=== PATIENT | male | born 1945 | race Caucasian/White ===

== ENCOUNTER 2016-10-09 22:50 | Observation (INO) | payer OTHER ==
[2016-10-09 23:11] VITALS: BMI 32.5
[2016-10-09] MEDS ORDERED: Albuterol/Ipratropium Neb 3 ML NEB NEB ONE (23:15)
[2016-10-09] MEDS ORDERED: METHYLPREDNISOLONE 125 MG/2 ML VIAL IV ONE (23:15)
--- NOTE | 2016-10-09 23:19 | EDPRACDOC ---
- History of Present Illness HPI: NOTE CP AND SHOB FOR A COUPLE OF DAYS. TOLD PA HE HAD CABG; HOWEVER, NO SCAR ON EXAM. HAD CATH AT [facility] ABOUT 9 YEARS AGO. UNSURE IF PCI, STENT, OR BLOCKAGE. <Chaz Francis - Last Filed: 10/10/16 01:15> - General Information Information Source: Patient - History of Present Illness HPI: C/o progressive exertional SOB x 2 months with intermittent racing heart beats x 1 month, and elevated BP last few days. Denies cp, fever, N/V/D, cough, sore throat, changes in urine or BM. Med hx = HTN, prior [place] with CABG (>9yrs ago), CVA x 2. Last stress test unknown. Shortness of Breath: Moderate Relevant History: Denies: None, Asthma, Bronchiolitis, COPD, Heart Failure (CHF) , H1N1, Immunosuppression, Influenza A exposure, Influenza B exposure, Recent travel, Renal Disease, Other Cough: Denies: Non-productive, NO, Productive, Clear, Bloody, Brown, Green, White, Yellow, T, BK, HK, CO, S, WK, O Ear Symptoms: Denies: None, Earache, Ear Drainage, Infection, Tinnitus, Hearing Difficulty, Deafness, Dizziness, Injury, Pain, Itching, Other SOB Worsens with: Reports: Exertion SOB Improves with: Reports: Rest <Wilfred Mesa - Last Filed: 10/10/16 04:13> - General Information Chief Complaint: Dyspnea/Resp distress Stated Complaint: SHOB Home Medications: Home Medications Calcium Carbonate [Calcium] 1 tab PO TID PRN 10/10/16 Clotrimazole & Betamethasone [Lotrisone Cream] 30 mg BOTH EARS BID 10/10/16 Fluticasone Propionate [Flonase] 2 spray PO DAILY 10/10/16 Ibuprofen 1 tab PO TID PRN 10/10/16 Lisinopril 1 tab PO DAILY 10/10/16 Loratadine [Claritin] 1 tab PO DAILY 10/10/16 Metoprolol Tartrate 1 tab PO BID 10/10/16 Multivit-Min/Iron Fum/Folic AC [Uobvd-Wmbaxfx-Bxccqkwi Tablet] 1 tab PO DAILY Omeprazole 20 mg PO BID 10/10/16 Tamsulosin HCl [Flomax] 1 cap PO DAILY 10/10/16 Allergies/Adverse Reactions: Allergies Allergy/AdvReac Type Severity Reaction Status Date / Time Penicillins Allergy Hives* Verified 10/10/16 04:05 - Treatment Prior to ED Arrival Reported Medications/Treatment [facility] Treatment BLS <Chaz Francis - Last Filed: 10/10/16 01:15> - Treatment Prior to ED Arrival Reported Medications/Treatment [facility] Treatment BLS <Wilfred Mesa - Last Filed: 10/10/16 04:13> ED Past Medical History - History Reviewed Yes Nurses notes reviewed and agree except as marked - Patient Medical History Cardiac History: Reports: Hypertension, Heart Attack, Hypercholesterolemia Psychological History: Denies: Depression Systemic History: Denies: Cancer - Social Medical History Smoking Status: Former smoker <Wilfred Mesa - Last Filed: 10/10/16 04:13> EDM Review of Systems - Review of Systems ROS Negative Except as Marked: Yes All systems reviewed and were negative except as marked Respiratory: Shortness of Breath Cardiovascular: Palpitations, Other (elevated BP) <Wilfred Mesa - Last Filed: 10/10/16 04:13> - Physical Exam Last recorded Vital Signs: Last Vital Signs Temp 97.9 F 10/09/16 23:04 Pulse 95 10/09/16 23:26 Resp 20 10/09/16 23:26 BP 164/103 H 10/09/16 23:26 Pulse Ox 95 10/09/16 23:26 Oxygen Pulse Oxygen Saturation 95 O2 Device Oxygen Flow Rate Fraction of Inspired Oxygen ( FIO2) <Chaz Francis - Last Filed: 10/10/16 01:15> - Physical Exam Constitutional: Distress Oriented to: Time, Person, Place Last recorded Vital Signs: Last Vital Signs Temp 97.9 F 10/09/16 23:04 Pulse 98 10/09/16 23:04 Resp 28 H 10/09/16 23:04 BP 179/113 H 10/09/16 23:04 Pulse Ox 96 10/09/16 23:04 Oxygen Pulse Oxygen Saturation 96 O2 Device Oxygen Flow Rate Fraction of Inspired Oxygen ( FIO2) - HEENT Head: Normal Eye Exam: negative: Conjunctival Injection, Scleral Icterus Oropharynx: negative: Drooling TMJ: Normal Nose: Other (chronic: cant breath thru nose) Neck: Normal - Respiratory/Cardiovascular Respiratory: Diminished (bilat), Wheezes (mild bilat) Cardiovascular: Tachycardia - GI Tenderness: Non tender - Musculoskeletal Back: Normal Extremities: Normal - Integumentary Skin: Normal - Neurologic Mood Description: Agitated Thought: Coherent Perception: Normal <Wilfred Mesa - Last Filed: 10/10/16 04:13> ED SOB MDM - Results Result Diagrams: 10/09/16 23:00 10/09/16 23:00 Results: WBC 9.0 xk/uL (3.8-10.8) 10/09/16 23:00 RBC 5.29 xM/uL (4.70-6.10) 10/09/16 23:00 Hgb 13.9 g/dL (14.0-18.0) L 10/09/16 23:00 Hct 41.5 % (42-52) L 10/09/16 23:00 MCV 78 fL (80-94) L 10/09/16 23:00 MCH 26.2 pg (27-32) L 10/09/16 23:00 MCHC 33.5 g/dl (33-36) 10/09/16 23:00 RDW 13.9 % (11.5-14.5) 10/09/16 23:00 Plt Count 225 xk/uL (130-400) 10/09/16 23:00 MPV 8.0 fL (7.4-10.4) 10/09/16 23:00 Neut % (Auto) 61.9 % (45-76) 10/09/16 23:00 Lymph % (Auto) 24.7 % (17-44) 10/09/16 23:00 Dupage % (Auto) 11.0 % (3-10) H 10/09/16 23:00 Eos % (Auto) 1.7 % (0-5) 10/09/16 23:00 Baso % (Auto) 0.7 % (0-2) 10/09/16 23:00 Absolute Neuts (auto) 5.49 xk/uL (1.7-8.2) 10/09/16 23:00 Absolute Lymphs (auto) 2.16 xk/uL (0.65-4.75) 10/09/16 23:00 PT 10.3 SEC (9.2-11.2) 10/09/16 23:00 INR 1.0 10/09/16 23:00 APTT 24.1 SEC (22-35) 10/09/16 23:00 D-Dimer Quant (PE/DVT) 343 ng/mL (<500) 10/09/16 23:00 Puncture Site Right radial 10/09/16 23:25 pH 7.520 pH UNITS (7.35-7.45) H 10/09/16 23:25 pCO2 28.0 mmHg (35-45) L 10/09/16 23:25 pO2 90.0 mmHg (80-100) 10/09/16 23:25 HCO3 22.9 MMOL/L (22-26) 10/09/16 23:25 Total CO2 23.8 MMOL/L (23-27) 10/09/16 23:25 Base Excess 1.1 (+/- 2) 10/09/16 23:25 FiO2 % Ra 10/09/16 23:25 Specimen Drawn By Bkl 10/09/16 23:25 Sodium 141 mEq/L (137-146) 10/09/16 23:00 Potassium 3.5 mEq/L (3.5-5.1) 10/09/16 23:00 Chloride 107 mEq/L (98-107) 10/09/16 23:00 Carbon Dioxide 22 mMOL/L (22-33) 10/09/16 23:00 Anion Gap 16 mEq/L (8-16) 10/09/16 23:00 BUN 11 MG/DL (9-20) 10/09/16 23:00 Creatinine 0.90 MG/DL (0.66-1.25) 10/09/16 23:00 Estimated GFR (MDRD) > 60 mL/min (>=60) 10/09/16 23:00 Glucose 129 MG/DL (70-99) H 10/09/16 23:00 Calculated Osmolality 272 MOs/Kg (270-290) 10/09/16 23:00 Calcium 9.6 MG/DL (8.4-10.2) 10/09/16 23:00 Total Bilirubin 0.5 MG/DL (0.2-1.3) 10/09/16 23:00 AST 23 IU/L (17-59) 10/09/16 23:00 ALT 15 IU/L (21-72) L 10/09/16 23:00 Alkaline Phosphatase 87 IU/L (50-160) 10/09/16 23:00 Troponin I < 0.01 ng/mL (<.04) 10/09/16 23:00 Loj-B-Bowgodzrygp Pept 66 pg/mL (0-900) 10/09/16 23:00 Total Protein 7.9 G/DL (6.3-8.2) 10/09/16 23:00 Albumin 4.0 G/DL (3.5-5.0) 10/09/16 23:00 Lab Results 10/09/16 10/09/16 10/09/16 23:25 23:00 23:00 WBC RBC Hgb Hct MCV MCH MCHC RDW Plt Count MPV Neut % (Auto) Lymph % (Auto) Dupage % (Auto) Eos % (Auto) Baso % (Auto) Absolute Neuts (auto) Absolute Lymphs (auto) PT 10.3 INR 1.0 APTT 24.1 D-Dimer Quant (PE/DVT) 343 Puncture Site Right radial pH 7.520 H pCO2 28.0 L pO2 90.0 HCO3 22.9 Total CO2 23.8 Base Excess 1.1 FiO2 % Ra Specimen Drawn By Bkl Sodium Potassium Chloride Carbon Dioxide Anion Gap BUN Creatinine Estimated GFR (MDRD) Glucose Calculated Osmolality Calcium Total Bilirubin AST ALT Alkaline Phosphatase Troponin I Sxk-M-Ourciofuqel Pept Total Protein Albumin 10/09/16 10/09/16 23:00 23:00 WBC 9.0 RBC 5.29 Hgb 13.9 L Hct 41.5 L MCV 78 L MCH 26.2 L MCHC 33.5 RDW 13.9 Plt Count 225 MPV 8.0 Neut % (Auto) 61.9 Lymph % (Auto) 24.7 Dupage % (Auto) 11.0 H Eos % (Auto) 1.7 Baso % (Auto) 0.7 Absolute Neuts (auto) 5.49 Absolute Lymphs (auto) 2.16 PT INR APTT D-Dimer Quant (PE/DVT) Puncture Site pH pCO2 pO2 HCO3 Total CO2 Base Excess FiO2 % Specimen Drawn By Sodium 141 Potassium 3.5 Chloride 107 Carbon Dioxide 22 Anion Gap 16 BUN 11 Creatinine 0.90 Estimated GFR (MDRD) > 60 Glucose 129 H Calculated Osmolality 272 Calcium 9.6 Total Bilirubin 0.5 AST 23 ALT 15 L Alkaline Phosphatase 87 Troponin I < 0.01 Kfx-B-Ipeuydmxwwn Pept 66 Total Protein 7.9 Albumin 4.0 <Chaz Francis - Last Filed: 10/10/16 01:15> - Re-evaluation Re-evaluation 1 Re-evaluation Time: 12:30 (pt much improved after duonebs. ) - Results Result Diagrams: 10/09/16 23:00 10/09/16 23:00 - EKG EKG #1 EKG Time: 23:03 -: Yes EKG interpreted by me Rate: bpm: 98 Rhythm: PVCs (sinus rhythm) ST: Normal - Diagnostic Imaging Chest Image interpreted by: Radiologist Diagnostic Imaging Comments: EXAM: PORTABLE CHEST 1 VIEW COMPARISON: None. FINDINGS: The lungs are clear with some bullous change seen in the apices. Heart size is normal. No pneumothorax or pleural effusion. IMPRESSION: No acute disease. Emphysema. Electronically Signed By: Taj Coker M.D. On: 10/09/2016 23:36 Other Image interpreted by: Radiologist Diagnostic Imaging Comments: EXAM: CT ANGIOGRAPHY CHEST WITH CONTRAST TECHNIQUE: Multidetector CT imaging of the chest was performed using the standard protocol during bolus administration of intravenous contrast. Multiplanar CT image reconstructions and MIPs were obtained to evaluate the vascular anatomy. The study was repeated due to limitations in the timing of the contrast bolus on the first scan. CONTRAST: 170 mL of Isovue 370 IV contrast COMPARISON: None. FINDINGS: There is no evidence of pulmonary embolus. Trace bilateral pleural fluid is noted, with mild bilateral atelectasis. Mild bullae are noted at the lung apices. There is no evidence of significant focal consolidation, pleural effusion or pneumothorax. No masses are identified; no abnormal focal contrast enhancement is seen. The mediastinum is unremarkable in appearance. No mediastinal lymphadenopathy is seen. No pericardial effusion is identified. The great vessels are grossly unremarkable in appearance. No axillary lymphadenopathy is seen. The visualized portions of the thyroid gland are unremarkable in appearance. The visualized portions of the liver and spleen are unremarkable. Bilateral renal cysts are partially imaged. The visualized portions of the pancreas, gallbladder and adrenal glands are unremarkable. No acute osseous abnormalities are seen. Review of the MIP images confirms the above findings. IMPRESSION: 1. No evidence of pulmonary embolus. 2. Trace bilateral pleural fluid, with mild bilateral atelectasis. Mild bullae noted at the lung apices. 3. Bilateral renal cysts noted. Electronically Signed By: Robert Hernandez M.D. On: 10/10/2016 01:02 <Wilfred Mesa - Last Filed: 10/10/16 04:13> - Departure Yes I personally saw and evaluated the patient. Disposition: Admit IP To This Hospital <Chaz Francis - Last Filed: 10/10/16 01:15> - Departure Education/Counseling Given To: Patient Education/Counseling Given Regarding: Diagnosis, Treatment, Prognosis, Follow Up Decision to Admit Time: : (Dr Magaña) Decision to admit date: 10/10/16 Decision to admit: from ED <Wilfred Mesa - Last Filed: 10/10/16 04:13> - Departure Condition: Stable Final Diagnosis: COPD exacerbation, CHEST PAIN
[2016-10-09 23:23] LABS: AUTOMATED BASOPHIL 0.7 % (0-2); AUTOMATED EOSINOPHIL 1.7 % (0-5); AUTOMATED LYMPH 24.7 % (17-44); AUTOMATED NEUTROPHIL 61.9 % (45-76)
[2016-10-09 23:30] LABS: ALLEN'S TEST PASS; BEb 1.1 (+/- 2); TCO2 23.8 MMOL/L (23-27)
[2016-10-09 23:32] LABS: ABG Draw Site Right Radial; ABG Draw Tech BKL
[2016-10-09 23:34] LABS: PARTIAL THROMB. TIME 24.1 SEC (22-35)
--- NOTE | 2016-10-09 23:39 | DIRPT ---
CLINICAL DATA: Shortness of breath for 2 months. Intermittent tachycardia for 1 month. Elevated blood pressure over the past few days. EXAM: PORTABLE CHEST 1 VIEW COMPARISON: None. FINDINGS: The lungs are clear with some bullous change seen in the apices. Heart size is normal. No pneumothorax or pleural effusion. IMPRESSION: No acute disease. Emphysema. Electronically Signed By: Taj Coker M.D. On: 10/09/2016 23:36
[2016-10-09 23:48] LABS: BLOOD UREA NITROGEN 11 MG/DL (9-20); CALCIUM 9.6 MG/DL (8.4-10.2); CALCULATED OSMOLALITY 272 MOs/Kg (270-290); CHLORIDE 107 mEq/L (98-107); GLUCOSE 129 MG/DL (70-99); SODIUM LEVEL 141 mEq/L (137-146); TOTAL PROTEIN 7.9 G/DL (6.3-8.2)
[2016-10-10] MEDS ORDERED: Albuterol/Ipratropium Neb 3 ML NEB NEB ONE (00:07)
[2016-10-10] MEDS ORDERED: Pharmacy Review for Metformin - IV Contrast Given SCH (01:00)
--- NOTE | 2016-10-10 01:05 | DIRPT ---
CLINICAL DATA: Chronic worsening shortness of breath, mid chest pain and headache. Initial encounter. EXAM: CT ANGIOGRAPHY CHEST WITH CONTRAST TECHNIQUE: Multidetector CT imaging of the chest was performed using the standard protocol during bolus administration of intravenous contrast. Multiplanar CT image reconstructions and MIPs were obtained to evaluate the vascular anatomy. The study was repeated due to limitations in the timing of the contrast bolus on the first scan. CONTRAST: 170 mL of Isovue 370 IV contrast COMPARISON: None. FINDINGS: There is no evidence of pulmonary embolus. Trace bilateral pleural fluid is noted, with mild bilateral atelectasis. Mild bullae are noted at the lung apices. There is no evidence of significant focal consolidation, pleural effusion or pneumothorax. No masses are identified; no abnormal focal contrast enhancement is seen. The mediastinum is unremarkable in appearance. No mediastinal lymphadenopathy is seen. No pericardial effusion is identified. The great vessels are grossly unremarkable in appearance. No axillary lymphadenopathy is seen. The visualized portions of the thyroid gland are unremarkable in appearance. The visualized portions of the liver and spleen are unremarkable. Bilateral renal cysts are partially imaged. The visualized portions of the pancreas, gallbladder and adrenal glands are unremarkable. No acute osseous abnormalities are seen. Review of the MIP images confirms the above findings. IMPRESSION: 1. No evidence of pulmonary embolus. 2. Trace bilateral pleural fluid, with mild bilateral atelectasis. Mild bullae noted at the lung apices. 3. Bilateral renal cysts noted. Electronically Signed By: Robert Hernandez M.D. On: 10/10/2016 01:02
[2016-10-10] MEDS ORDERED: ALBUTEROL 6.7 GM MDI INH ONE (01:11)
[2016-10-10] MEDS ORDERED: NITROGLYCERINE 2 % OINTMENT PACK TOP ONE (01:20)
[2016-10-10] MEDS ORDERED: ASPIRIN (CHEWABLE) 81 MG TAB PO ONE (01:20)
[2016-10-10] MEDS ORDERED: METOPROLOL TARTRATE 25 MG TAB PO ONE (01:20)
[2016-10-10] MEDS ORDERED: Enoxaparin 1 mg per kg per dose SQ ONE (01:21)
[2016-10-10] MEDS ORDERED: ONDANSETRON HCL 4 MG/2 ML VIAL IV PRN (01:26)
[2016-10-10] MEDS ORDERED: NITROGLYCERINE 0.4 MG TAB SL PRN (01:26)
[2016-10-10] MEDS ORDERED: ACETAMINOPHEN 325 MG/TAB TABLET PO PRN (01:26)
--- NOTE | 2016-10-10 01:29 | HISTPHYS ---
- Chief Complaint Chest pain - History of Present Illness This is a 71-year-old male with a history of hypertension was being admitted to the hospital this morning due to chest pain. Patient is not a very good historian, but tells me that he has had shortness of breath and intermittent chest pain for several weeks now. 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 This exertion made his chest pain particularly worse today. He also has some associated shortness of breath, a sensation that he has trouble catching his breath, which is occurring at the same time as his chest pain. He is unable to describe the nature of the pain. Pain is right in the center of his chest, does not radiate. No aggravating or alleviating factors other than aggravation caused by his stress and physical exertion tonight. Patient says that he had a heart catheterization about 8 or 9 years ago. He says that he was never anything about the findings or any possible intervention done. - Medical History Cardiac History: Reports: Hypertension, Heart Attack, Hypercholesterolemia Systemic History: Denies: Cancer Psychological History: Denies: Depression - Medictions/Allergies Allergies Penicillins Allergy (Verified 10/09/16 23:04) Hives* Home Medications Calcium Carbonate [Calcium] 1 tab PO TID PRN 10/10/16 Clotrimazole & Betamethasone [Lotrisone Cream] 30 mg BOTH EARS BID 10/10/16 Fluticasone Propionate [Flonase] 2 spray PO DAILY 10/10/16 Ibuprofen 1 tab PO TID PRN 10/10/16 Lisinopril 1 tab PO DAILY 10/10/16 Loratadine [Claritin] 1 tab PO DAILY 10/10/16 Metoprolol Tartrate 1 tab PO BID 10/10/16 Multivit-Min/Iron Fum/Folic AC [Tfbjx-Nvlaxcy-Vtycktzn Tablet] 1 tab PO DAILY Omeprazole 20 mg PO BID 10/10/16 Tamsulosin HCl [Flomax] 1 cap PO DAILY 10/10/16 - Social History Smoking Status: Former smoker - Review of Systems Yes All systems reviewed and were negative except as marked (And as mentioned in the history of present illness above.) - Physical Exam Vital Signs: Initial Vitals Temperature 97.9 F 10/09/16 23:04 Pulse Rate 98 10/09/16 23:04 Respiratory Rate 28 H 10/09/16 23:04 Blood Pressure 179/113 H 10/09/16 23:04 Pulse Oxygen Saturation 96 10/09/16 23:04 Constitutional: Alert (Awake, Fully oriented, well appearing. No apparent distress) Oriented to: Time, Person, Place - HEENT Head: Normal (normocephalic,atraumatic, trachea midline) Eye: Normal (EOMI, Sclera white) Oropharynx: Normal (moist) Nose: No Symptoms Reported (without discharge or bleeding) Respiratory: Normal - CTA (Clear to auscultation bilaterally, no wheezing,rales or rhonchi. No use of accessory muscles) Cardiovascular: Normal (RRR, no murmurs, rubs or gallops) - GI Palpation: Normal (soft, non distended and nontender) - Musculoskeletal Extremities: Normal (normal tone, no cyanosis or edema) - Integumentary Skin: Normal (no rashes or lesions) - Neurologic Cranial Nerve: Normal (CN II-XII intact) Mood Description: Normal (Fully oriented and appropiate affect) - Focused CV Perfusion Exam Vital Signs: Last Vital Signs Temp 97.9 F 10/09/16 23:04 Pulse 95 10/09/16 23:26 Resp 20 10/09/16 23:26 BP 164/103 H 10/09/16 23:26 Pulse Ox 95 10/09/16 23:26 - Lab Results Laboratory Tests 10/09/16 10/09/16 10/09/16 23:00 23:00 23:00 WBC 9.0 Hgb 13.9 L Hct 41.5 L Plt Count 225 INR 1.0 pH pCO2 pO2 Potassium 3.5 BUN 11 Creatinine 0.90 AST 23 ALT 15 L Alkaline Phosphatase 87 10/09/16 23:25 WBC Hgb Hct Plt Count INR pH 7.520 H pCO2 28.0 L pO2 90.0 Potassium BUN Creatinine AST ALT Alkaline Phosphatase - Diagnostic Findings CT of the chest without any acute findings. He has trace bilateral pleural effusions, as well as bilateral renal cysts. No pulmonary consolidation or emboli. - Assessment (1) Chest pain R07.9 - CHEST PAIN, UNSPECIFIED Acute Qualifiers: Chest pain type: C Ischemic chest pain type: I Intermittent chest pain, worse with exertion in a gentleman with a history of hypertension, diabetes and prior heart catheterization, although his whole history is quite unclear. Patient will be admitted under observation status to rule out myocardial infarction due to chest pain. Troponins were trended, and if negative he will have a stress test later this morning. Patient has been advised that if the stress test is negative, he will be discharged from the hospital later today and he should follow up with his regular provider at the retirement regarding other potential causes of his chest pain. Continue aspirin, home beta-zakia, and statin. (2) Emphysema lung J43.9 - EMPHYSEMA, UNSPECIFIED Acute Qualifiers: Emphysema type: E Continue home inhaled went medications. (3) Hypoxia R09.02 - HYPOXEMIA Acute He has subjective shortness of breath here in the hospital. It is associated with his chest pain, so may be an anginal equivalent. Continue supplemental oxygen, respiratory therapy has been consulted. CT of the chest does not show any consolidation, PE.
[2016-10-10] MEDS ORDERED: Pharmacy Order Set Alert SCH (02:00)
[2016-10-10] MEDS ORDERED: ENOXAPARIN SODIUM 100 MG, ENOXAPARIN SODIUM 30 MG SQ ONE ×2 (02:00)
[2016-10-10] MEDS ORDERED: CLOTRIMAZOLE & BETAMETHASONE 45 GM TUBE TOP SCH ×2 (03:00→09:00)
[2016-10-10] MEDS ORDERED: FLUTICASONE PROPIONATE 16 GM BOT NAS SCH ×2 (03:00→09:00)
[2016-10-10] MEDS ORDERED: Vaccine Screening Complete SCH (05:00)
[2016-10-10] MEDS ORDERED: PANTOPRAZOLE 40 MG TAB PO SCH (06:00)
[2016-10-10] MEDS ORDERED: SODIUM CHLORIDE 0.9% 10 ML FLUSH FLUSH ONE (08:00)
[2016-10-10] MEDS ORDERED: REGADENOSON 0.4 MG/5 ML SYRINGE IV ONE (08:00)
[2016-10-10] MEDS ORDERED: LISINOPRIL 20 MG TAB PO SCH (09:00)
[2016-10-10] MEDS ORDERED: FOLIC AC PO SCH (09:00)
[2016-10-10] MEDS ORDERED: MULTIVIT MIN PO SCH (09:00)
[2016-10-10] MEDS ORDERED: Non-Formulary Medication ITEM (Omeprazole [Omeprazole] 20 MG) PO SCH (09:00)
[2016-10-10] MEDS ORDERED: Loratadine 10 MG TAB PO SCH (09:00)
[2016-10-10] MEDS ORDERED: METOPROLOL TARTRATE 25 MG TAB PO SCH (09:00)
[2016-10-10] MEDS ORDERED: TAMSULOSIN HCL 0.4 MG CAP PO SCH (09:00)
[2016-10-10] MEDS ORDERED: [UNRECOGNIZED DRUG - OTHER] PO SCH (09:00)
[2016-10-10] MEDS ORDERED: LORATADINE PO SCH (09:00)
[2016-10-10] MEDS ORDERED: IRON FUM PO SCH (09:00)
[2016-10-10] MEDS ORDERED: SESTAMIBI 8 MCI V IV ONE (09:53)
--- NOTE | 2016-10-10 11:55 | CAPUEKG ---
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
[2016-10-10] MEDS ORDERED: VITAMINS, MULTIPLE CAP PO SCH (12:00)
--- NOTE | 2016-10-10 16:12 | PCM.DCS92 ---
- Final/Secondary Discharge Diagnosis (1) Chest pain Acute R07.9 - CHEST PAIN, UNSPECIFIED Present on Admission: Yes C I Comment: Intermittent chest pain, worse with exertion in a gentleman with a history of hypertension, diabetes and prior heart catheterization, although his whole history is quite unclear. Patient will be admitted under observation status to rule out myocardial infarction due to chest pain. Troponins were trended, and if negative he will have a stress test later this morning. Patient has been advised that if the stress test is negative, he will be discharged from the hospital later today and he should follow up with his regular provider at the custodial regarding other potential causes of his chest pain. Continue aspirin, home beta-zakia, and statin. (2) Emphysema lung Acute J43.9 - EMPHYSEMA, UNSPECIFIED Present on Admission: Yes centrilobular J43.2 - Centrilobular emphysema Comment: Continue home inhaled went medications. (3) Hypoxia Acute R09.02 - HYPOXEMIA Present on Admission: Yes Comment: He has subjective shortness of breath here in the hospital. It is associated with his chest pain, so may be an anginal equivalent. Continue supplemental oxygen, respiratory therapy has been consulted. CT of the chest does not show any consolidation, PE. Discharge Disposition: Home Discharge Condition: Improved Cognitive Discharge Status: Unimpaired Fuctional Discharge Status: Independent Physician Follow up/Referrals: None,No Provider [Family Provider] - One Week (Follow-up with physician at correctional facility in 1 week) Home Medications / New Prescriptions: Continue Calcium Carbonate [Calcium] 1 tab PO TID PRN PRN Reason: Acid Reflux Loratadine [Claritin] 10 mg PO .WITH DINNER Multivit-Min/Iron Fum/Folic AC [Cuevv-Tkcvcry-Fottcbuo Tablet] 1 tab PO DAILY Tamsulosin HCl [Flomax] 0.4 mg PO DAILY Metoprolol Tartrate 100 mg PO BID Lisinopril 20 mg PO DAILY Ibuprofen 800 mg PO TID PRN PRN Reason: Discomfort Clotrimazole & Betamethasone [Lotrisone Cream] 30 mg BOTH EARS BID Omeprazole 20 mg PO BID Triamcinolone Acetonide [Nasacort] 2 spray MAKAYLA DAILY Discharge Home Medication List Calcium Carbonate [Calcium] 1 tab PO TID PRN 10/10/16 [History Confirmed Last Taken Unknown] Clotrimazole & Betamethasone [Lotrisone Cream] 30 mg BOTH EARS BID 10/10/16 [ History Confirmed 10/10/16 Last Taken Unknown] Ibuprofen 800 mg PO TID PRN 10/10/16 [History Confirmed 10/10/16 Last Taken Unknown] Lisinopril 20 mg PO DAILY 10/10/16 [History Confirmed 10/10/16 Last Taken ] Loratadine [Claritin] 10 mg PO .WITH DINNER 10/10/16 [History Confirmed Last Taken 10/09/16] Metoprolol Tartrate 100 mg PO BID 10/10/16 [History Confirmed 10/10/16 Last Taken 10/09/16] Multivit-Min/Iron Fum/Folic AC [Hwuwq-Kmadpes-Dtnrmxil Tablet] 1 tab PO DAILY [History Confirmed 10/10/16 Last Taken 10/09/16] Omeprazole 20 mg PO BID 10/10/16 [History Confirmed 10/10/16 Last Taken 10/09/16 ] Tamsulosin HCl [Flomax] 0.4 mg PO DAILY 10/10/16 [History Confirmed 10/10/16 Last Taken 10/09/16] Triamcinolone Acetonide [Nasacort] 2 spray MAKAYLA DAILY 10/10/16 [History Confirmed 10/10/16 Last Taken 10/09/16] 10/09/16 23:00 10/09/16 23:00 Laboratory Results - last 24 hr 10/09/16 10/09/16 10/09/16 23:00 23:00 23:00 WBC 9.0 RBC 5.29 Hgb 13.9 L Hct 41.5 L MCV 78 L MCH 26.2 L MCHC 33.5 RDW 13.9 Plt Count 225 MPV 8.0 Neut % (Auto) 61.9 Lymph % (Auto) 24.7 [place] % (Auto) 11.0 H Eos % (Auto) 1.7 Baso % (Auto) 0.7 Absolute Neuts (auto) 5.49 Absolute Lymphs (auto) 2.16 PT 10.3 INR 1.0 APTT 24.1 D-Dimer Quant (PE/DVT) Puncture Site pH pCO2 pO2 HCO3 Total CO2 Base Excess FiO2 % Specimen Drawn By Sodium 141 Potassium 3.5 Chloride 107 Carbon Dioxide 22 Anion Gap 16 BUN 11 Creatinine 0.90 Estimated GFR (MDRD) > 60 Glucose 129 H Calculated Osmolality 272 Calcium 9.6 Total Bilirubin 0.5 AST 23 ALT 15 L Alkaline Phosphatase 87 Troponin I < 0.01 Koh-P-Aovluxohiar Pept 66 Total Protein 7.9 Albumin 4.0 10/09/16 10/09/16 10/10/16 23:00 23:25 02:52 WBC RBC Hgb Hct MCV MCH MCHC RDW Plt Count MPV Neut % (Auto) Lymph % (Auto) [place] % (Auto) Eos % (Auto) Baso % (Auto) Absolute Neuts (auto) Absolute Lymphs (auto) PT INR APTT D-Dimer Quant (PE/DVT) 343 Puncture Site Right radial pH 7.520 H pCO2 28.0 L pO2 90.0 HCO3 22.9 Total CO2 23.8 Base Excess 1.1 FiO2 % Ra Specimen Drawn By Bkl Sodium Potassium Chloride Carbon Dioxide Anion Gap BUN Creatinine Estimated GFR (MDRD) Glucose Calculated Osmolality Calcium Total Bilirubin AST ALT Alkaline Phosphatase Troponin I < 0.01 Elt-C-Vcdzafiwyyb Pept Total Protein Albumin 10/10/16 02:57 WBC RBC Hgb Hct MCV MCH MCHC RDW Plt Count MPV Neut % (Auto) Lymph % (Auto) [place] % (Auto) Eos % (Auto) Baso % (Auto) Absolute Neuts (auto) Absolute Lymphs (auto) PT INR APTT D-Dimer Quant (PE/DVT) Puncture Site pH pCO2 pO2 HCO3 Total CO2 Base Excess FiO2 % Specimen Drawn By Sodium Potassium Chloride Carbon Dioxide Anion Gap BUN Creatinine Estimated GFR (MDRD) Glucose Calculated Osmolality Calcium Total Bilirubin AST ALT Alkaline Phosphatase Troponin I < 0.01 Fuq-S-Jarzztayldw Pept Total Protein Albumin O2 Device: Room Air Additional Instructions: Diet at Discharge: As Tolerated Activity: As Tolerated - DC Summary Notes HPI/Notes: This is a 71-year-old male with a history of hypertension was being admitted to the hospital this morning due to chest pain. Patient is not a very good historian, but tells me that he has had shortness of breath and intermittent chest pain for several weeks now. Tonight, he was very stressed out at the custodial where he is an inmate, due to new prisoners causing trouble in his bunk, and resulted in heavy to carry his own heavy mattress the length of the custodial to defer block. This exertion made his chest pain particularly worse today. He also has some associated shortness of breath, a sensation that he has trouble catching his breath, which is occurring at the same time as his chest pain. He is unable to describe the nature of the pain. Pain is right in the center of his chest, does not radiate. No aggravating or alleviating factors other than aggravation caused by his stress and physical exertion tonight. Patient says that he had a heart catheterization about 8 or 9 years ago. He says that he was never anything about the findings or any possible intervention done. Hospital Course Note:: Discharge summary on patient named NED LEACH admitted to [facility] on 10/10/16 by Alejandro Bush MD. Date of discharge is 10/10/2016. This custodial inmate was admitted with chest pain and had a negative nuclear stress test for ischemia showing ejection fraction 57% and previous inferior wall CO. He was informed of the results of his test and sent back to custodial. Follow up with his primary care provider at the institution will be necessary within the next week. CC: Dr. Ramírez Total Time: 39 min Code: Other (236) - Physical Exam Vital Signs: Last Vital Signs Temp 97.9 F 10/09/16 23:04 Pulse 101 10/10/16 07:30 Resp 18 10/10/16 07:30 BP 154/84 10/10/16 07:30 Pulse Ox 95 10/10/16 07:30 Oxygen Pulse Oxygen Saturation 95 O2 Device Room Air Oxygen Flow Rate Fraction of Inspired Oxygen ( FIO2) Constitutional: Alert (Awake, Fully oriented. Normal and appropriate affect.), No apparent distress Oriented to: Time, Person, Place - HEENT Head: Normal Eye: Normal. negative: Conjunctival Injection, Scleral Icterus Oropharynx: Normal. negative: Drooling ENT EAC: Normal (No oropharyngeal lesions or erythema. Mucous membranes are dry. ) TMJ: Normal Nose: No Symptoms Reported, Other (chronic: cant breath thru nose) - Respiratory/Cardiovascular Respiratory: Diminished (bilat), Wheezes (mild bilat) Cardiovascular: Tachycardia - GI Auscultation: Normal (normal active sounds) Palpation: Normal (Soft,non distended,nontender. No hepatosplenomegaly.) Tenderness: Non tender Mcclelland's Sign: Negative - Musculoskeletal Back: Normal Extremities: Normal - Integumentary Skin: Normal Lymphatics: Normal - Neurologic Memory Impaired: Normal Motor Function: Normal (Motor 5/5 throughout.Normal tone, Pulses 2+ No cyanosis or edema, FROM) Cranial Nerve: Normal (CN II-XII intact sensation, strength 5/5) Cerebellar: Normal (Babinski: toes downgoing bilaterally. Intact Finger to nose. Sensory grossly intact to light touch. Intact rapid alternating movements bilaterally. No pronator drift.) Mood Description: Normal (Fully oriented. Normal and appropriate affect.) Thought: Coherent Perception: Normal
[2016-10-10 16:45] VITALS: BP 147/83; PULSE 100; TEMP 98.8
--- NOTE | 2016-10-11 15:13 | PCM.STRESS ---
Nuclear stress test (Lexiscan): Indication for procedure: Chest pain. Patient was brought to the stress test room in a fasting state. IV was already inserted. The patient got connected to the family court counsellor. Blood pressure was monitored as well as pulse oximetry. Lexiscan was given during in usual fashion. That was followed by injection of radioisotope. Then patient was monitored for about 5 min. Resting heart rate was 102 beats/ min. Resting blood pressure was 146/86 mm of mercury. Resting EKG showed normal sinus rhythm, normal P interval, normal QRS complex duration morphology, nonspecific ST-T segment changes. EKG during the infusion of Lexiscan and shortly after showed no diagnostic ST segment changes. Symptoms noted during the infusion and after include mild nausea. Nuclear assessment: Resting imaging showed mild defect involving basal mid and apical portion of the inferior wall. Stress imaging showed mild defect involving basal mid and apical portion of the inferior wall. Gated imaging revealed normal contractility in all segments. The ejection fraction was 57%. Conclusions: 1. No ischemia seen on this scan. 2. Normal gated images. 3. Normal ejection fraction. Comments: Fixed defect involving inferior wall is most likely related to diaphragmatic attenuation.
== END 2016-10-10 16:39 | disposition home or self-care (01) ==
LOC: ED 22:50 → EEVIPCON 22:50 → EDINP 10-10 01:26
PROVIDERS: ADMIT Internal Medicine; ATTEND Internal Medicine
DX: R07.9 Chest pain, unspecified (principal); J43.9 Emphysema, unspecified; R09.02 Hypoxemia; I10 Essential (primary) hypertension; E78.00 Pure hypercholesterolemia, unspecified; I25.2 Old myocardial infarction; Z87.891 Personal history of nicotine dependence; E11.9 Type 2 diabetes mellitus without complications; R06.02 Shortness of breath; Z79.899 Other long term (current) drug therapy
CPT/HCPCS: 36415; 36600; 71010; 71275; 78452; 80053; 82803; 83880; 84484; 85025; 85379; 85610; 85730; 87641; 93005; 93017; 94640; 96372; 96374; 99285; A4216; A9500; A9698; G0378; J1650; J2785; J2930; J3490; J7620